=== PATIENT | male | born 2000 | race Caucasian/White ===

== ENCOUNTER 2023-11-01 17:01 | Emergency (ER) | payer BC ==
--- NOTE | 2023-11-01 17:16 | ED ---
General Adult HPI <Monica Calix - Last Filed: 11/01/23 17:15> - General Source: patient, RN notes reviewed, old records reviewed <Lonnie Cao - Last Filed: 11/02/23 00:02> - General Stated complaint: Vomiting Time Seen by Provider: 11/01/23 17:16 - History of Present Illness Initial comments: Patient is a 23-year-old male who presents emergency room with flulike symptoms. Patient complains of nausea, vomiting, generalized body aches and cough for the last several days. Does work in healthcare. (Monica Calix) Patient is a 23-year-old male who was originally evaluated as a quick note. Presents he was department for upper respiratory complaints. Also has had nausea and multiple episodes of nonbilious emesis at home. Endorses fevers and body aches. Otherwise healthy. No significant history of current asthma. Denies any chest pain. Does endorse increased shortness of breath with coughing. Denies any abdominal pain, diarrhea. No other acute complaints this time. Endorses severe pain as well as pain. Originally evaluated as a quick note. No known sick contacts. (Lonnie Cao) Review of Systems ROS Other: All systems not noted in ROS Statement are negative. <Monica Calix - Last Filed: 11/01/23 17:15> ROS Other: All systems not noted in ROS Statement are negative. <Lonnie Cao - Last Filed: 11/02/23 00:02> ROS Statement: Those systems with pertinent positive or pertinent negative responses have been documented in the HPI. Review of Systems: CONST: Endorses fever EYES: Denies blurry vision ENT: Denies nasal congestion C/V: Denies Chest pain RESP: Denies shortness of breath GI: Denies abdominal pain : Denies dysuria SKIN: Denies rash. MSK: Denies joint pain. NEURO: Denies headache (Lonnie Cao) General Exam <Monica Calix - Last Filed: 11/01/23 17:15> <Lonnie Cao - Last Filed: 11/02/23 00:02> - General Exam Comments Initial Comments: Visual Physical Exam Vital signs reviewed General: Well-appearing, nontoxic, no acute distress. Head: Normocephalic, atraumatic Eyes: PERRLA, EOMI ENT: Airway patent Chest: Nonlabored breathing Skin: No visual rash, normal skin tone Neuro: Alert and oriented 3 Musculoskeletal: No gross abnormalities (Monica Calix) General: febrile HEAD: Normal with no signs of head trauma. EYES: PERRLA, EOMI, conjunctiva normal, no discharge. ENT: Hearing grossly intact, erythematous posterior oropharynx without any obvious exudates. RESPIRATORY: Clear breath sounds bilaterally. No wheezes, rales, or rhonchi. No hypoxia. No increased work of breathing. C/V: Regular rate and rhythm. S1 and S2 auscultated, \peripheral pulses 2+ and intact throughout ABD: Abd is soft, nontender, nondistended EXT: Normal range of motion, no obvious deformity SKIN: No rashes or lesions observed on exposed skin. NEURO: Alert and oriented 4. (Lonnie Cao) Course Vital Signs 11/01/23 11/01/23 11/01/23 17:54 18:00 18:14 Temperature 101.3 F H Pulse Rate 123 H Respiratory 20 20 20 Rate Blood Pressure 119/75 O2 Sat by Pulse 99 Oximetry 11/01/23 18:38 Temperature Pulse Rate 119 H Respiratory 20 Rate Blood Pressure O2 Sat by Pulse 99 Oximetry Medical Decision Making <Monica Calix - Last Filed: 11/01/23 17:15> <Lonnie Cao - Last Filed: 11/02/23 00:02> - Medical Decision Making Quick note portion completed by myself, Monica Calix PA-C (Monica Calix) Was pt. sent in by a medical professional or institution ([facility], [employer]IECE [employer], urgent care, hospital, or penitentiary...) When possible be specific @ -No Did you speak to anyone other than the patient for history (EMS, parent, family, police, friend...)? What history was obtained from this source @ -No Did you review nursing and triage notes (agree or disagree)? Why? @ -I reviewed and agree with nursing and triage notes Were old charts reviewed (outside hosp., previous admission, EMS record, old EKG, old radiological studies, urgent care reports/EKG's, penitentiary records)? Report findings @ -No old charts were reviewed Differential Diagnosis (chest pain, altered mental status, abdominal pain women, abdominal pain men, vaginal bleeding, weakness, fever, dyspnea, syncope, headache, dizziness, GI bleed, back pain, seizure, CVA, palpatations, mental health, musculoskeletal)? @ -Covid, flu, pneumonia, strep pharyngitis, viral URI. This list is not all inclusive. EKG interpreted by me (3pts min.). @ -As above X-rays interpreted by me (1pt min.). @ -Chest x-ray reveals no obvious acute cardio pulmonary process. CT interpreted by me (1pt min.). @ -None done U/S interpreted by me (1pt. min.). @ -None done What testing was considered but not performed or refused? (CT, X-rays, U/S, labs)? Why? @ -None What meds were considered but not given or refused? Why? @ -None Did you discuss the management of the patient with other professionals (professionals i.e. , PA, ODD PIECE CHECKER, lab, RT, psych nurse, social media sr strategy manager, plastics repairer, teacher, senior major gifts officer, classification case manager)? Give summary @ -No Was smoking cessation discussed for >3mins.? @ -No Was critical care preformed (if so, how long)? @ -No Were there social determinants of health that impacted care today? How? (Homelessness, low income, unemployed, alcoholism, drug addiction, transportation, low edu. Level, literacy, decrease access to med. care, custodial, rehab)? @ -No Was there de-escalation of care discussed even if they declined (Discuss DNR or withdrawal of care, Hospice)? DNR status @ -No What co-morbidities impacted this encounter? (DM, HTN, Smoking, COPD, CAD, Cancer, CVA, ARF, Chemo, Hep., AIDS, mental health diagnosis, sleep apnea, morbid obesity)? @ -None Was patient admitted / discharged? Hospital course, mention meds given and route, prescriptions, significant lab abnormalities, going to OR and other pertinent info. @ -Patient originally evaluated as a quick note. We will obtain viral swabs, strep swab, chest x-ray. I suspect upper respiratory infection at this time. I'll send remarkable for a fever and tachycardia likely secondary to fever. Clinically he does not appear dehydrated. Vital signs otherwise within acceptable limits. Has not taken any recent antipyretics. He will be given doses of oral Tylenol and Motrin as well as ODT Zofran. Patient was in agreement this plan. Chest x-ray shows no signs of acute cardio pulmonary process.Infectious swab is positive for influenza A. On reevaluation, patient is feeling improved. Tachycardia is improved. We discussed his workup. He has tolerated oral intake. He is safer to be discharged home at this time. He'll be given a work note for the next 2 days. He was in agreement this plan. I instructed the patient to follow up with their PCP in the next 1-3 days. I explained that the patient should return to the emergency department if they experience any worsening symptoms. Strict return precautions were discussed with the patient. The patient expressed understanding of these instructions. I answered all questions that the patient had. The patient was discharged home in good condition with their prescriptions and follow up information. Undiagnosed new problem with uncertain prognosis? @ -No Drug Therapy requiring intensive monitoring for toxicity (Heparin, Nitro, Insulin, Cardizem)? @ -No Were any procedures done? @ -No Diagnosis/symptom? @ -Influenza A Acute, or Chronic, or Acute on Chronic? @ -Acute Uncomplicated (without systemic symptoms) or Complicated (systemic symptoms)? @ -Complicated Side effects of treatment? @ -none Exacerbation, Progression, or Severe Exacerbation] @ -no Poses a threat to life or bodily function? @ -no (Lonnie Cao) - Lab Data Lab Results 11/01/23 11/01/23 Range/Units 17:52 17:52 Influenza Type A (PCR) Detected A (Not Detectd) Influenza Type B (PCR) Not Detected (Not Detectd) RSV (PCR) Not Detected (Not Detectd) SARS-CoV-2 (PCR) Not Detected (Not Detectd) Group A Strep (PCR) NOT DETECTED (Not Detectd) Disposition <Monica Calix - Last Filed: 11/01/23 17:15> Is patient prescribed a controlled substance at d/c from ED?: No Time of Disposition: 19:38 <Lonnie Cao - Last Filed: 11/02/23 00:02> Clinical Impression: Influenza A Disposition: HOME SELF-CARE Condition: Good Instructions (If sedation given, give patient instructions): Influenza (ED) Referrals: None,Stated [Primary Care Provider] - 1-2 days
[2023-11-01 18:17] VITALS: BP 119/75; RESP 20; TEMP 101.3
[2023-11-01] MEDS ORDERED: IBUPROFEN 600 MG TAB PO STA (18:18)
[2023-11-01] MEDS ORDERED: ACETAMINOPHEN TAB 500 MG TAB PO STA (18:18)
[2023-11-01] MEDS ORDERED: ONDANSETRON ODT 4 MG TAB PO STA (18:18)
--- NOTE | 2023-11-01 18:32 | XR ---
EXAMINATION TYPE: XR chest 2V DATE OF EXAM: 11/01/2023 6:01 PM CLINICAL INDICATION:Male, 23 years old with history of cough; [facility] COMPARISON: None TECHNIQUE: XR chest 2V Frontal and lateral views of the chest. FINDINGS: Lungs/Pleura: There is no evidence of pleural effusion, focal consolidation, or pneumothorax. Pulmonary vascularity: Unremarkable. Heart/mediastinum: Cardiomediastinal silhouette is unremarkable. Musculoskeletal: No acute osseous pathology. Other findings: None IMPRESSION: No acute cardiopulmonary disease/process.
[2023-11-01 18:58] VITALS: PULSE 119
[2023-11-01] MEDS ORDERED: ONDANSETRON 4 MG ODT STARTER PACK 2 TAB BTL PO STA (19:43)
== END 2023-11-01 20:02 | disposition home or self-care (01) ==
LOC: EC 17:01
DX: J10.1 Influenza due to other identified influenza virus with other respiratory manifestations (principal); Z20.822 Contact with and (suspected) exposure to COVID-19
CPT/HCPCS: 87651; 87636; 71046; 99284; S0119